=== PATIENT | male | born 1990 | race Asian ===

== ENCOUNTER 2023-10-29 08:35 | Outpatient (CLI) | payer OTHER ==
--- NOTE | 2023-10-29 09:55 | Sleep Patient Instructions ---
Sleep Center Visit Summary - Patient Visit Information Reason for Visit: Initial consult for evaluation of sleep disordered breathing and other sleep issues. - Patient Instructions Instructions Attached: Sleep Study Additional Instructions: You will be completing a sleep study, either an in-lab polysomnography (PSG) or home sleep study (HST). You will follow-up in the sleep care office after the sleep study is completed to hear the results and talk about therapy, if needed. You will be called by our office staff to schedule this appointment, but you may contact us with any questions. Consult - Clinic Information Contact: [facility] [address] [place] [address] [email or web address] T: [phone]
--- NOTE | 2023-10-29 09:57 | SLEEP CARE CONSULTATION ---
Information from patient questionnaire entered by Krupa Storey. I have reviewed and concur with the information entered by Krupa Storey. This document represents the service I personally performed and the decisions made by me, Maria Elena Bridges ARNP. History of Present Illness Service Date and Time: 10/29/2023 0835 Reason for Visit: New patient Chief Complaint: reports: Snoring Date of Onset: Few years Usual bedtime: 10:30 PM Time it takes to fall asleep: Hour Snores at night: Yes Observed to quit breathing while asleep: Yes Sleeps alone due to snoring: No Number of times waking at night: One to two times Reasons for waking at night: reports: Snoring Toss, Turn, or Twitch while sleeping: Yes Recalls having dreams: No Usually gets out of bed at: 7:00 AM Feels refreshed in the morning: Yes Morning headache: Yes Sleepy or fatigued during the day: Yes Ever fallen asleep while driving: No Takes day naps: Yes Dreams during day naps: No Prior sleep studies: No Additional HPI information: I had the pleasure of seeing MEREDITH BACH today regarding the possibility of him having a sleep disorder. His current complaint is snoring. He says he was told he might have signs of sleep apnea. He has been snoring for a long time and it is supposedly very loud. He said recently that he has stopped breathing when sleeping. He goes to sleep in about an hour and will wake up 1-2 times at night for unknown reasons or snoring. He does not remember dreaming. He gets up about 0700 and normally feels rested, except on occasion. He wakes up with headaches about 1-2 time a week which last about half the day. He tries to nap during lunch time but does not always get a nap. He has restless sensations from a possible pinched sciatic nerve that happens every now and then throughout the day. 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 Patient is single and lives in [place]. Have you smoked in the past 12 months: No Alcohol use: Yes Alcohol amount and frequency: Three, once or twice a month Caffeine use: Yes Caffeine amount and frequency: One daily Family History Family history of sleep disordered breathing: Yes Family Hx Sleep Apnea: Mother: Snoring, Father: Snoring, Sibling: Snoring, Grandparent: Snoring Allergies and Home Medications Known drug allergies: No Drug allergies reviewed: Yes Home medication list reviewed: Yes (as listed) Allergy and home medication list: Allergies No Known Drug Allergies Allergy (Verified 10/29/23 09:47) Home Medications Benadryl See Rx Instructions .ROUTE .COMPLEX 10/29/23 [History] Cetirizine See Rx Instructions .ROUTE .COMPLEX 10/29/23 [History] Tylenol See Rx Instructions .ROUTE .COMPLEX 10/29/23 [History] Review of Systems Weight gain over past 5 years: 30 Cardiovascular: denies: high blood pressure Respiratory: reports: sputum production Gastrointestinal: reports: diarrhea, abdominal pain. denies: heartburn Neurological: reports: headaches Psychiatric: denies: anxiety, depression Ear/Nose/Throat: reports: nasal congestion, nose bleeds, wisdom teeth removed. denies: tonsillectomy Endocrine: reports: sluggishness (/tired) Musculoskeletal: reports: joint pain, muscle pain or cramping Immunologic: reports: sneezing (/runny nose), allergies to food or environment (Environment) Physical Exam Vital signs obtained and entered by: Maria Elena Vasquez NP Blood Pressure: 124/78 Cuff size: regular (right arm) Heart Rate: 69 O2 Saturation: 98 Height: 6 ft 2.12 in Weight: 224 lb 6.4 oz Body Mass Index: 28.7 BMI Classification: Overweight Neck circumference: 16.25 (inches) Mouth and throat: narrow oropharynx Soft palate: long Hard palate: normal Uvula: normal Uvula visualization: 50% Mallampati Class II Tongue: enlarged in size with teeth aguilar on lateral edges Tonsils: small Neck: normal w/o lymphadenopathy or thyromegaly Heart: regular rate and rhythm Lungs: clear bilaterally Impression and Plan 1. Suspected Obstructive Sleep Apnea-Hypopnea Syndrome, as suggested by a history of loud and irregular snoring, observed cessation of breath while asle ep, morning headache, cognitive impairment, and excessive daytime sleepiness. Narrow oropharynx and obesity are common predisposing factors for obstructive sleep apnea-hypopnea syndrome. I recommend proceeding to polysomnography to confirm the diagnosis and to assess severity. If the patient has significant sleep disordered breathing, a manual CPAP titration study will also be performed to find the optimal treatment pressure. I informed the patient of what the sleep studies involve and after some discussion, obtained agreement to proceed. The pathophysiology of obstructive sleep apnea-hypopnea syndrome was discussed with the patient and health risks of cardiovascular and cerebrovascular disease if not treated. Risks of drowsy driving discussed in detail and patient advised to avoid long distance driving and to machine puller at the first sign of drowsiness. Patient agreed to plan. * Schedule polysomnography +- manual CPAP titration study and return in 1-2 weeks after the study to discuss result and initiate therapy. * Avoid long distance driving or driving when feeling sleepy. * Avoid alcohol, sedative and muscle relaxant around bedtime. * Attempt to lose weight. * Review instructions provided by trained office staff on how to prepare for the sleep study. * Return for follow-up after sleep study completed. Counseling Topics: Weight loss health impact Plan: PSG and follow up Visit Type: In Office Time Spent with Patient (minutes): 30 Provider Statement: I spent 100% of the Face to Face Visit with the patient with greater than 50% spent counseling the patient and coordination of care.
[2023-10-29 09:59] VITALS: BP 124/78; O2SAT 98
== END 2023-10-29 08:36 | disposition home or self-care (01) ==
LOC: SC 08:35
PROVIDERS: ATTEND Nurse Practitioner Family
DX: R06.83 Snoring (principal); R06.81 Apnea, not elsewhere classified; R51.9 Headache, unspecified; R41.89 Other symptoms and signs involving cognitive functions and awareness; G47.10 Hypersomnia, unspecified; E66.3 Overweight; Z68.28 Body mass index [BMI] 28.0-28.9, adult
CPT/HCPCS: 99203; 99212

== ENCOUNTER 2023-11-22 19:20 | Outpatient (CLI) | payer OTHER | END 2023-11-22 19:21 | disposition home or self-care (01) | LOC: SC 19:20 | PROVIDERS: ATTEND Nurse Practitioner Family | DX: G47.33 Obstructive sleep apnea (adult) (pediatric) (principal); E66.3 Overweight; Z68.28 Body mass index [BMI] 28.0-28.9, adult | CPT/HCPCS: 95810 ==

== ENCOUNTER 2023-12-01 11:28 | Outpatient (CLI) | payer OTHER ==
--- NOTE | 2023-12-01 12:01 | Sleep Patient Instructions ---
Sleep Center Visit Summary - Patient Visit Information Reason for Visit: Sleep study follow-up - Patient Instructions Instructions Attached: CPAP Additional Instructions: You are being started on CPAP therapy with pressure setting at 4-15 cmH2O. You will need to call the sleep care office to set up your follow up once you have your CPAP machine to check compliance and response to therapy at that time. You may call the office with any concerns about pressure feeling too low or too much for adjustment, if needed. You should contact DME supplier for any questions or concerns about mask or equipment. Please call office to schedule a follow up appointment in the sleep care office one month after obtaining new device. - Clinic Information Contact: [facility] [address] [place] [address] [email or web address] T: [phone]
--- NOTE | 2023-12-01 12:07 | SLEEP CARE CONSULTATION ---
Information from patient questionnaire entered by Misty Morris. I have reviewed and concur with the information entered by Misty Morris. This document represents the service I personally performed and the decisions made by me, Maria Elena Bridges ARNP. History of Present Illness Service Date and Time: 12/01/2023 1128 Initial [place] Sleepiness Scale score: 15 (in 2023) Current [place] Sleepiness Scale score: 15 (12/01/23) Additional HPI information: MEREDITH BACH returns for follow up and results of the recently performed polysomnography. The sleep study done on 11/22/23 showed mild obstructive sleep apnea with an average AHI of 8.6 and shaylee oxygen saturation of 88%. I explained the pathophysiology behind obstructive sleep apnea. We then spent quite a bit of time discussing different treatment options. For mild obstructive sleep apnea, surgery and oral appliance are alternatives to nasal CPAP therapy but in moderate or severe cases, nasal CPAP is the most effective and reliable treatment. I reviewed the impact of weight changes on sleep apnea and strongly recommended losing weight. After some discussion, the patient opted to go with the nasal CPAP therapy. Nasal autoCPAP set at 4-15 cmH20 will be ordered with rationale explained. A manual titration study will be ordered if unable to find optimal pressure with office adjustments. I explained how CPAP machine works and what to expect when using the machine. Using CPAP every night in order to get used to it was emphasized. Patient advised to put CPAP mask on before getting into bed so as not to fall asleep without CPAP. To assist acclimation to CPAP use, it could also be used for a short time during day while reading or watching TV. The patient was instructed to call the CPAP supplier to discuss any mechanical problem that may occur. If the mask given is uncomfortable or is difficult to keep on through the night even with adjustment, contact the CPAP supplier as many will replace with another mask style if notified before 30 days. If snoring or perceives is not getting enough air or too much air from the machine, notify this office. Patient counseled not drink alcohol less than 4 hours before bedtime as it can increase snoring and apnea. Patient was cautioned about risks of drowsy driving until sleepiness symptoms resolve. Patient denies drowsy driving. Sleep Study - Results Type of Sleep Study: Polysomnography (COMPLETED 11/22/23) Prior sleep studies: No Polysomnography/Home Sleep Study results: IMPRESSION: The quality of the study is good. The patient had normal sleep efficiency. The sleep architecture was abnormal for sleep fragmentation and reduced amount of time spent in slow wave sleep (N3). Respiratory monitoring showed mild obstructive sleep apnea-hypopnea (AHI = 8.6) associated with frequent arousals, oxyhemoglobin desaturation and mild hypoxia (shaylee oxygen saturation of 88%). The patient only slept supine during this study (supine AHI = 8.6; non-supine = 0.00). Snore was light to loud in intensity. There was no significant periodic leg movement of sleep. Cardiac rhythm was normal sinus rhythm without significant arrhythmia. No abnormal behavior (parasomnia) observed during the night. Allergies and Home Medications Known drug allergies: No Drug allergies reviewed: Yes Home medication list reviewed: Yes (no changes) Allergy and home medication list: Allergies No Known Drug Allergies Allergy (Verified 10/29/23 09:47) Physical Exam Vital signs obtained and entered by: MISTY Escalante MA Blood Pressure: 119/73 (LEFT ARM) Cuff size: regular Heart Rate: 85 O2 Saturation: 98 Height: 6 ft 2.12 in Weight: 225 lb 3.2 oz Body Mass Index: 28.8 BMI Classification: Overweight Impression and Plan 1. Obstructive Sleep Apnea-Hypopnea Syndrome, mild, with lowest oxygen saturation of 88% Obviously this is the cause of the patients symptoms of unrefreshed sleep, and excessive daytime sleepiness. As mentioned above, the patient will be started on nasal autoCPAP therapy with pressure set at 4-15 cmH2 O. A manual titration study will be completed if unable to find optimal treatment pressure with office adjustments. Compliance guidelines also reviewed. A copy of compliance guidelines will be given for reference at check out. 2. Overweight, unspecified. Currently patients BMI is 28.8. Obesity increases the risk of apnea, CPAP pressure requirements and overall health risks especially cardiovascular and diabetes. Thus patient is advised to lose weight. * Nasal auto CPAP therapy, pressure at 4-15 cm H2O. * Attempt to lose weight. * Avoid alcohol consumption near bedtime. * Avoid supine sleep until using CPAP. * The patient is again cautioned about driving until sleepiness completely resolves. * Return one month after CPAP obtained. I will assess response to therapy and compliance at that time. Counseling Topics: Weight loss health impact Prescriptions: Auto CPAP Follow up with Sleep Care in: other (compliance visit) Visit Type: In Office Time Spent with Patient (minutes): 21 Provider Statement: I spent 100% of the Face to Face Visit with the patient with greater than 50% spent counseling the patient and coordination of care.
[2023-12-01 12:12] VITALS: BP 119/73; O2SAT 98
== END 2023-12-01 11:29 | disposition home or self-care (01) ==
LOC: SC 11:28
PROVIDERS: ATTEND Nurse Practitioner Family
DX: G47.33 Obstructive sleep apnea (adult) (pediatric) (principal); E66.3 Overweight; Z68.28 Body mass index [BMI] 28.0-28.9, adult
CPT/HCPCS: 99212; 99213